=== PATIENT | female | born 1955 | race Caucasian/White ===

== ENCOUNTER 2022-08-04 07:05 | Day surgery (SDC) | payer MEDICARE ==
[~2022-08-04] VITALS: Ht 162.6 cm; Wt 88.0 kg
[~2022-08-04 07:05] MED LIST: ALBU6.7H6 INH; ATOR1TAB19 PO; BSS IRRIG/VANCO(10MG)/TOBRA(5MG)/EPINEPH(1:1000-0.5CC)500ML BAG-ORONLY IR ONE; CEFUROXIME 1MG/0.1ML INTRACAMERAL INJ As Ordered ONE; CIDA500T2 PO; CINN500C15 PO; COQ150CH PO; CYCLOPENTOLATE 1% OPHTH SOLN 2ML BTL OS SCH; GLIP10TA18 PO; LEVO100T5 PO; LIDOCAINE 1% SDV 5ML VIAL As Ordered ONE; LIDOCAINE 3.5 % 1ML OPHTH TOPICAL GEL OU ONE; OFLOXACIN 0.3 % (OCUFLOX) OPTH SOL 5ML OS ONE; OMEP-173 PO; PHENYLEPHRINE 10% OPHTH SOL 5ML OS PRN; PHENYLEPHRINE 2.5% OPHTH SOL 2ML OS SCH; PSEU1TAB3 PO; TROPICAMIDE 1% OPHTH SOLN 15ML OS SCH; VIT1CAPS27 PO; VITA100066 PO; ZINC50TA4 PO
[2022-08-04] MEDS ORDERED: fentaNYL 100 MCG/2 ML INJECTION As Ordered ONE (07:15)
[2022-08-04] MEDS ORDERED: MIDAZOLAM INJ 2MG/2ML VIAL As Ordered ONE (07:15)
[2022-08-04 09:21] VITALS: BP 139/65
== END 2022-08-04 09:51 | disposition home or self-care (01) ==
LOC: M SDC 07:05
PROVIDERS: ATTEND Ophthalmology
DX: H25.12 Age-related nuclear cataract, left eye (principal); E11.9 Type 2 diabetes mellitus without complications; E03.9 Hypothyroidism, unspecified; E78.5 Hyperlipidemia, unspecified; Z88.2 Allergy status to sulfonamides; Z79.899 Other long term (current) drug therapy; Z79.890 Hormone replacement therapy
CPT/HCPCS: 66984; J0697; J2250; J3010; V2632